=== PATIENT | female | born 1955 | race Caucasian/White ===

== ENCOUNTER → 2017-03-09 | Outpatient (CLI) | payer OTHER ==
[~2017-03-09] MED LIST: ALLOPURINOL 30300 M2 PO; ALLOPURINOL PO; AMLODIPINE BESYL5 MG PO; BACTRIM DS TAB1 EACH PO; BUPROPION PO; CALCIUM PO; COUMADIN 10MG T10 M1 PO; COUMADIN 5 MG TA5 M1; EFFEXOR; EFFEXOR 5050 MG/1 T1 PO; GABAPENTIN PO; HYDROCODON-ACE1 EAC5 PO; KEFLEX500 MG PO; LIDODERM 5%1 PATC1 TOP; LISINOPRIL PO; MEDROLDOSEPACK PO; NEURONTIN 300300 M1 PO; NORCO 10-325 T1 EACH PO; NORCO 5-325 TA1 EACH PO; NYAMYC15 GM TOP; PRAVACHOL40 MG PO; PREVACID 30MG C30 M1 PG; PREVACID 30MG C30 M1 PO; PREVACID30 MG PO; PRINIVIL20 MG PO; PROBIOTIC1 EAC1 PO; SKELAXIN 800 M800 M1 PO; STRATTERA; STRATTERA10 MG PO; SUPER B COMPLE1 EAC2 PO; THERA-M CAPLET1 EACH PO; TRIAMCINOLONE A80 G2 TOP; TUSSID DM SYRU240 ML PO; ULORIC80 MG PO; VITAMIN D2000 UNIT PO; WELLBUTRIN SR150 MG PO; XANAX PO; XANAX1 MG PO
== END ==
LOC: HYPER 06-10 08:00
DX: I87.391 Chronic venous hypertension (idiopathic) with other complications of right lower extremity (principal); K21.9 Gastro-esophageal reflux disease without esophagitis; F31.9 Bipolar disorder, unspecified; M19.90 Unspecified osteoarthritis, unspecified site; G43.909 Migraine, unspecified, not intractable, without status migrainosus; Z86.718 Personal history of other venous thrombosis and embolism; I12.9 Hypertensive chronic kidney disease with stage 1 through stage 4 chronic kidney disease, or unspecified chronic kidney disease; N18.2 Chronic kidney disease, stage 2 (mild)

== ENCOUNTER 2018-07-11 15:21 | Emergency (ER) | payer OTHER ==
[~2018-07-11] VITALS: Ht 154.9 cm; Wt 115.7 kg
[2018-07-11 16:33] LABS: HEMATOCRIT 34.9 % (37.0-47.0); HEMOGLOBIN 11.8 gm/dL (12.0-15.0); MCH 31.2 pg (26.0-34.0); MCHC 33.9 g/dL (28.0-37.0); MCV 92.1 fL (80.0-100.0); RBC 3.78 mil/uL (4.20-5.00); RDW 15.1 % (10.5-14.5); WBC 6.3 thou/uL (4.0-11.0)
[2018-07-11 16:39] LABS: POTASSIUM 3.4 mmol/L (3.5-5.1)
[2018-07-11 16:40] LABS: INR 1.2; PROTIME 12.5 Seconds (9.3-11.4)
[2018-07-11] MEDS ORDERED: NORCO 10-325 T1 EACH PO (17:29)
[2018-07-11 17:39] VITALS: BP 137/74
== END 2018-07-11 17:41 | disposition home or self-care (01) ==
LOC: ER 15:21
PROVIDERS: Physician Assistant
DX: M25.561 Pain in right knee (principal); I10 Essential (primary) hypertension; E78.00 Pure hypercholesterolemia, unspecified; F32.9 Major depressive disorder, single episode, unspecified; M10.9 Gout, unspecified; J42 Unspecified chronic bronchitis; K21.9 Gastro-esophageal reflux disease without esophagitis; M54.9 Dorsalgia, unspecified; G89.29 Other chronic pain; Z88.1 Allergy status to other antibiotic agents; Z88.6 Allergy status to analgesic agent; Z86.718 Personal history of other venous thrombosis and embolism; Z90.49 Acquired absence of other specified parts of digestive tract; Z90.710 Acquired absence of both cervix and uterus; W10.9XXA Fall (on) (from) unspecified stairs and steps, initial encounter; Y92.89 Other specified places as the place of occurrence of the external cause; Y93.89 Activity, other specified; Y99.8 Other external cause status

== ENCOUNTER 2019-02-16 14:14 | Emergency (ER) | payer OTHER ==
[~2019-02-16] VITALS: Ht 157.5 cm; Wt 111.6 kg
[2019-02-16 16:52] VITALS: BP 133/59
[2019-02-16] MEDS ORDERED: MOBIC15 MG PO (17:06)
[2019-02-16] MEDS ORDERED: LIDOCAINE PAIN1 EACH TOP (17:23)
== END 2019-02-16 17:32 | disposition home or self-care (01) ==
LOC: ER 14:14
DX: S81.801A Unspecified open wound, right lower leg, initial encounter (principal); K21.9 Gastro-esophageal reflux disease without esophagitis; M10.9 Gout, unspecified; I10 Essential (primary) hypertension; F32.9 Major depressive disorder, single episode, unspecified; E78.00 Pure hypercholesterolemia, unspecified; G89.29 Other chronic pain; M54.9 Dorsalgia, unspecified; Z86.14 Personal history of Methicillin resistant Staphylococcus aureus infection; Z90.49 Acquired absence of other specified parts of digestive tract; Z98.890 Other specified postprocedural states; Z86.718 Personal history of other venous thrombosis and embolism; Z88.1 Allergy status to other antibiotic agents; Z88.6 Allergy status to analgesic agent; I87.8 Other specified disorders of veins; W18.39XA Other fall on same level, initial encounter; Y92.89 Other specified places as the place of occurrence of the external cause; Y93.89 Activity, other specified; Y99.8 Other external cause status

== ENCOUNTER 2019-08-08 12:20 | Inpatient (IN) | payer OTHER ==
[~2019-08-08] VITALS: Ht 154.9 cm; Wt 118.5 kg
--- NOTE | ~2019-08-08 | HC ---
[facility] [place] [address] CONSULTATION Name: ANKIT JULIAN Room #: 452-P ADM IN M.R.#: [id number] Admission: 08/08/19 Attend Phys: Roberto Harrison MD Discharge: Date of : 53 Report #: [id number] THIS REPORT FOR: cc: Ed Smith MD, Steven E. MD Al-Absi,Tasha Alicia MD ~ CC: Tasha Smith REASON FOR CONSULTATION: Acute kidney injury. REASON FOR THE PRESENTATION: Post fall. HISTORY OF PRESENT ILLNESS: A 63-year-old with extensive past medical history including chronic kidney disease, hypertension. She is also known to have chronic pain issues and maintained on numerous medications for her chronic pain. She used to see Dr. Dillon in our clinic. She carries a diagnosis of chronic kidney disease with a baseline creatinine of around 1.5. She presented yesterday having some issues with falls and was found to be down by her daughter and was brought for further evaluation and management. Family reported that the patient had been increasingly weak in the last couple of weeks. She denies any urinary symptoms. Nobody really knows how long the patient has been down. When the patient presented to the Emergency Room yesterday, her creatinine was up to 2.9. I was consulted to manage her acute kidney injury. PAST MEDICAL HISTORY: 1. Hypertension. 2. Chronic pain issues. 3. DVT. 4. Remote history of acute renal failure after hysterectomy. 5. GERD. 6. Knee surgery. 7. Chronic back pain. 8. Hysterectomy. 9. Depression. ALLERGIES: ERYTHROMYCIN. CURRENT MEDICATIONS: Include meloxicam, pravastatin, alprazolam, warfarin, allopurinol, gabapentin, lisinopril, amlodipine, hydrocodone. SOCIAL HISTORY: No reported drug or alcohol abuse. FAMILY HISTORY: Significant for hypertension. REVIEW OF SYSTEMS: [facility] [address] [place] [address] CONSULTATION Name: ANKIT JULIAN Room #: [address] [place] [address] [place] [facility].#: [id number] Admission: 08/08/19 Attend Phys: Roberto Harrison MD Discharge: Date of : 53 Report #: [id number] GENERAL: Significant for weakness and lethargy. CARDIOVASCULAR: No chest pain or palpitation. PULMONARY: No cough or hemoptysis. GASTROINTESTINAL: No nausea or vomiting or loss of appetite and weight loss. GENITOURINARY: No frequency, no urgency. SKIN: Significant for bilateral lower extremity venous stasis changes. PHYSICAL EXAMINATION: GENERAL: She is alert, oriented. VITAL SIGNS: Blood pressure is 134/56, temperature is 37.4. HEAD AND NECK: No jugular venous distention. CARDIOVASCULAR: No rub detected, distant S1 and S2. CHEST: Decreased air entry bilaterally with no crackles. ABDOMEN: Soft and nontender. LOWER EXTREMITIES: Extensive bilateral lower extremity venous stasis changes. LABORATORY VALUES: Reviewed. Sodium is 144, potassium is 3.2, chloride is 109, BUN is 20, creatinine is 1.4. Hemoglobin is 11.1. IMPRESSION AND PLAN: 1. Acute kidney injury due to nonsteroidal anti-inflammatory medications. 2. Coagulopathy with supratherapeutic INR. 3. Chronic kidney disease. 4. Polypharmacy. Renal function is improving with IV fluid. Continue to hold blood pressure medication. Completely avoid nonsteroidal anti-inflammatory medication. 5. Replace potassium. 6. Her renal function is back to her usual baseline. She could follow up with our clinic as an outpatient. 7. No further renal recommendations. By: [id number] Tasha Patton MD /nt
[~2019-08-08 12:20] MED LIST changes: +LIDOCAINE PAIN1 EACH TOP; +MOBIC15 MG PO
[2019-08-08 12:31] VITALS: BP 148/55
--- NOTE | 2019-08-08 12:34 | NUR ---
trauma coodinator to see patient. unsure of complaint. pt appears confused but alert. reports "she did not fall" just laid down on floor, face down to increase oxygen into her lungs. pt is on warfarin secondary to dvt. family arrives at reports unwitness fall however found face down in bathroom. patient states it was intentional. family also concerned increased confusion the past week. dr castaneda notified.
[2019-08-08 12:41] LABS: ABSOLUTE NEUTROPHILS 8.1 thou/uL (1.4-8.2); BASOPHILS 0.2 % (0.0-2.0); EOSINOPHILS 1.2 % (0.0-3.0); HEMATOCRIT 36.1 % (37.0-47.0); HEMOGLOBIN 11.9 gm/dL (12.0-15.0); LYMPHOCYTES 13.8 % (24.0-44.0); MCH 31.5 pg (26.0-34.0); MCV 95.5 fL (80.0-100.0); MONOCYTES 5.2 % (1.0-8.0); PLATELET COUNT 202 thou/uL (150-400); POLYS 79.6 % (36.0-66.0); RBC 3.78 mil/uL (4.20-5.00); RDW 15.4 % (10.5-14.5); WBC 10.2 thou/uL (4.0-11.0)
[2019-08-08 12:50] LABS: ANION GAP 13 mmol/L (7-16); BUN 33 mg/dL (7-18); CHLORIDE 105 mmol/L (98-107); CO2 20 mmol/L (21-32); CREATININE 2.9 mg/dL (0.6-1.0); GLUCOSE 123 mg/dL (74-106); POTASSIUM 3.2 mmol/L (3.5-5.1); SODIUM 138 mmol/L (136-145)
[2019-08-08 12:54] LABS: APTT 68.3 Seconds (24.5-32.8); PROTIME 67.8 Seconds (9.3-11.4)
[2019-08-08 12:56] LABS: ALBUMIN 3.1 g/dL (3.4-5.0); SALICYLATE < 2.8 mg/dL (2.8-20.0); SGOT 45 U/L (15-37); SGPT 21 U/L (30-65); TOTAL BILIRUBIN 0.5 mg/dL (<0.1-1.0); TOTAL PROTEIN 6.6 g/dL (6.4-8.2)
[2019-08-08 13:03] LABS: INR 6.6
[2019-08-08 13:31] LABS: URINE BILIRUBIN NEGATIVE (Negative); URINE BLOOD 3+ (Negative); URINE CLARITY CLEAR; URINE COLOR YELLOW; URINE GLUCOSE-RANDOM* NEGATIVE (Negative); URINE KETONES NEGATIVE (Negative); URINE LEUKOCYTES-REFLEX NEGATIVE (Negative); URINE NITRITE-REFLEX NEGATIVE (Negative); URINE PROTEIN (DIPSTICK) TRACE (Negative); URINE SPECIFIC GRAVITY 1.025 (1.005-1.035); URINE UROBILINOGEN 0.2 E.U./dl (0.2-1.0)
[2019-08-08 13:41] LABS: AMP/METHAMP Negative (Negative); BARBITURATES Negative (Negative); BENZODIAZEPINES Negative (Negative); COCAINE Negative (Negative); METHADONE Negative (Negative); OPIATES POSITIVE (Negative); PCP Negative (Negative)
[2019-08-08 13:45] LABS: CASTS None Seen /LPF (None Seen); CRYSTALS None Seen /LPF (None Seen); SQUAMOUS 4-10 Moderate /LPF (0-3)
[2019-08-08 13:46] LABS: BACTERIA-REFLEX 1-9 Few /HPF (None Seen); URINE RBC 0-2 Rare /HPF (0-2); URINE WBC-REFLEX 0-5 Rare /HPF (0-5)
[2019-08-08 15:34] VITALS: BP 115/50
--- NOTE | 2019-08-08 15:46 | NUR ---
DR GIBSON CALLED, STATES THAT THE FOLLOWING MEDS SHOULD BE HELD R/T KIDNEY FUNCTION: EFFEXOR AMLODIPINE MOBIC GABAPENTIN LISINOPRIL ALSO GIVES T/O FOR NS 70ML/HR
[2019-08-08 16:13] VITALS: BP 115/50
--- NOTE | 2019-08-08 16:17 | NUR ---
HANDOFF TOOL SENT AT 16:16. CALLED UNIT TO NOTIFY THEM OF HAND OFF TOOL COMMUNICATION.
[2019-08-08 17:12] VITALS: BP 134/72
[2019-08-08 19:20] VITALS: BP 113/50
--- NOTE | 2019-08-09 05:32 | NUR ---
Assumed pt care @1915. pt a&ox4. pt woke up from sleep with a little bit of confusion but slowly cleared up and was able to answer all my questions appropraitely. pt ambulates with 1 assist with a walker to the bathroom. pt complaint of pain to sacral area upon palpation. pt denies anyother kind of pain. no s/s of distress. will cont to monitor
[2019-08-09 06:05] LABS: HEMATOCRIT 34.6 % (37.0-47.0); HEMOGLOBIN 11.1 gm/dL (12.0-15.0); MCH 31.1 pg (26.0-34.0); MCHC 32.2 g/dL (28.0-37.0); MCV 96.5 fL (80.0-100.0); RBC 3.58 mil/uL (4.20-5.00); RDW 15.7 % (10.5-14.5); WBC 7.4 thou/uL (4.0-11.0)
[2019-08-09 06:15] LABS: CREATININE 1.4 mg/dL (0.6-1.0); POTASSIUM 3.2 mmol/L (3.5-5.1)
[2019-08-09 06:18] LABS: PROTIME 97.1 Seconds (9.3-11.4)
[2019-08-09 06:29] LABS: INR 9.4
[2019-08-09 08:00] VITALS: BP 134/56
--- NOTE | 2019-08-09 10:50 | NUR ---
PT ADMITTED RELATED TO GENERALIZED WEAKNESS, FALL AT HOME. CM REVIEWED CHART AND SPOKE WITH CARE TEAM. CM MET WITH PT AT BEDSIDE THIS DAY. PT IS A&O X4. CM ROLE INTRODUCED. PT INDICATED SHE LIVES IN A SECOND FLOOR APARTMENT WITH HER SMALL DOG WITH ELEVATOR ACCESS. 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 PT INIDCATED SHE HAD HH YEARS AGO. PT INDICATED SHE HAD BEEN TO [facility] OR [facility] TWICE IN THE PAST WELL. PT INIDCATED HER DTR AND HER ANAMARIA ANABEL ARE THE BEST CONTACTS FOR HER. PT INIDCATED THAT SHE HOPES TO BE ABLE TO RETURN HOME ONCE MEDICALLY STABLE. CM TO FOLLOW INDICATED WITH DC PLANNING.
[2019-08-09 14:55] VITALS: BP 137/55
--- NOTE | 2019-08-09 15:57 | NUR ---
CARE TEAM INDICATED THAT PT MAY BE MEDICALLY STABLE TO DC HOME OVER SVEN WEEKEND. REFERRAL FOR HOME HEALTH SERVICES HAD BEEN SENT TO [facility] AND THEY CAN ACCEPT PT FOR SERVICES UPON DISCHARGE. ORDERS WILL NEED TO BE FAXED TO . CALL AND NOTIFY THEM OF DISCHARGE. PT HAD ALL RECOMMENDED DME.
[2019-08-09 15:59] VITALS: BP 137/55
--- NOTE | 2019-08-09 18:46 | NUR ---
PT A&OX4, VSS, DENIES PAIN. APPROX 0830 WAS VERY HARD TO AROUSE, WOULD OPEN EYES AND CLOSE IMMEDIATELY. HER BASELINE AT 0700 WAS ALERT AND TALKATIVE AND WANTING PEPSI WITH BREAKFAST. VITALS AND BLOOD SUGAR TAKE AND WITHIN NORMAL LIMITS, DOCTOR NOTIFIED. AT 0845 DOCTOR IN WITH PATIENT. AT THIS TIME PATIENT JOKING AND STATING SHE IS RETIRED AND JUST WANTED TO SLEEP. DOCTOR AWARE THAT MED REC ISNT COMPLETED. PATIENT HASNT HAD THAT EPISODE SINCE 0830. NO SIGNS OF DISTRESS. WILL CONTINUE TO MONITOR.
[2019-08-09 19:06] VITALS: BP 144/64
--- NOTE | 2019-08-10 04:53 | NUR ---
No concerns overnight. pt had a restful night but bathroom interruptions. pt ambulates to the bathroom with 1 assist and a cane pt wanted her protonix before bed. orders recived and and administered. v/s stable. no s/s of distress. will cont to monitor
[2019-08-10 06:06] LABS: CALCIUM 8.4 mg/dL (8.5-10.1); POTASSIUM 3.6 mmol/L (3.5-5.1)
[2019-08-10 08:00] VITALS: BP 160/80
[2019-08-10 09:45] LABS: INR 2.6; PROTIME 27.1 Seconds (9.3-11.4)
[2019-08-10] MEDS ORDERED: COUMADIN 2.5MG2.5 M1 PO (09:54)
[2019-08-10 11:58] VITALS: BP 137/55
[2019-08-10 12:04] VITALS: BP 137/55
--- NOTE | 2019-08-10 12:31 | NUR ---
SPOKE WITH JOSE CALROS WITH [facility] AND NOTIFIED HER OF PATIENTS DISCHARGE TODAY, ORDERS FAXED WELL.
--- NOTE | 2019-08-10 12:32 | NUR ---
PT A&OX4, VSS, PAIN IN ABDOMEN D/T GERD. PATIENT HAD MEDICATION TO MANAGE STOMACH DISCOMFORT. PATIENT DISCHARGING HOME WITH [facility]. PATIENT HAS NO SIGNS OF DISTRESS, IV REMOVED, ALL BELONGINGS WITH PATIENT.
== END 2019-08-10 15:41 | disposition home health service (06) | DRG 918 ==
LOC: ER 12:20 → EROBS 14:37 → 4W 14:37
PROVIDERS: Emergency Medicine; ADMIT Hospitalist
DX: T39.394A Poisoning by other nonsteroidal anti-inflammatory drugs [NSAID], undetermined, initial encounter (principal); N17.9 Acute kidney failure, unspecified; D68.9 Coagulation defect, unspecified; N14.0 Analgesic nephropathy; T39.391A Poisoning by other nonsteroidal anti-inflammatory drugs [NSAID], accidental (unintentional), initial encounter; T42.6X1A Poisoning by other antiepileptic and sedative-hypnotic drugs, accidental (unintentional), initial encounter; K21.9 Gastro-esophageal reflux disease without esophagitis; G89.29 Other chronic pain; M54.9 Dorsalgia, unspecified; F32.9 Major depressive disorder, single episode, unspecified; N18.9 Chronic kidney disease, unspecified; E78.5 Hyperlipidemia, unspecified; Z60.2 Problems related to living alone; M10.9 Gout, unspecified; D64.9 Anemia, unspecified; I12.9 Hypertensive chronic kidney disease with stage 1 through stage 4 chronic kidney disease, or unspecified chronic kidney disease; E86.0 Dehydration; E87.6 Hypokalemia; T39.395A Adverse effect of other nonsteroidal anti-inflammatory drugs [NSAID], initial encounter; Y92.89 Other specified places as the place of occurrence of the external cause; Z86.718 Personal history of other venous thrombosis and embolism; Z90.49 Acquired absence of other specified parts of digestive tract; Z90.710 Acquired absence of both cervix and uterus; Z86.14 Personal history of Methicillin resistant Staphylococcus aureus infection; Z88.1 Allergy status to other antibiotic agents; Z88.8 Allergy status to other drugs, medicaments and biological substances; Z82.49 Family history of ischemic heart disease and other diseases of the circulatory system
CPT/HCPCS: 10040

== ENCOUNTER 2021-03-14 22:34 | Inpatient (IN) | payer MEDICARE ==
[~2021-03-14] VITALS: Ht 152.4 cm; Wt 107.0 kg
[~2021-03-14 22:34] MED LIST changes: +COUMADIN 2.5MG2.5 M1 PO
[2021-03-14 22:36] VITALS: BP 160/70
[2021-03-15 00:18] LABS: ABSOLUTE NEUTROPHILS 5.3 thou/uL (1.4-8.2); BASOPHILS 0.4 % (0.0-2.0); EOSINOPHILS 0.7 % (0.0-3.0); HEMATOCRIT 40.5 % (37.0-47.0); LYMPHOCYTES 23.3 % (24.0-44.0); MCH 29.9 pg (26.0-34.0); MCHC 32.1 g/dL (28.0-37.0); MCV 93.2 fL (80.0-100.0); MONOCYTES 7.2 % (1.0-8.0); PLATELET COUNT 277 thou/uL (150-400); POLYS 68.4 % (36.0-66.0); RBC 4.35 mil/uL (4.20-5.00); RDW 15.5 % (10.5-14.5); WBC 7.7 thou/uL (4.0-11.0)
[2021-03-15 00:21] LABS: CALCIUM 8.8 mg/dL (8.5-10.1); CREATININE 1.2 mg/dL (0.6-1.0)
[2021-03-15 00:24] LABS: APTT 37.3 Seconds (24.5-32.8); INR 1.91; POTASSIUM 2.7 mmol/L (3.5-5.1); PROTIME 20.2 Seconds (10.5-12.1)
[2021-03-15 07:05] VITALS: BP 177/80
[2021-03-15 07:25] VITALS: BP 156/92
--- NOTE | 2021-03-15 11:36 | NUR ---
A/O 3. ROOM AIR. 2 ASSIST WITH WALKER. WEAK, YRN AT KNEES. RIGHT RADIAL FX IN SLING AND LEFT GREAT TOE FX IN BOOT. LEFT HAND IV 22 G SALINE LOCKED. LEFT ARM BRUISE. K 2.7. DR. CHEN NOTIFIED. NORCO ADDED. PER PATIENT NORCO WORKS BETTER FOR HER THAN MORPHINE. NPO.
--- NOTE | 2021-03-15 15:37 | EKG ---
[address] [address] ELECTROCARDIOGRAM REPORT Name: ANKIT JULIAN Room #: 443-P ADM IN M.R.#: [id number] Admission: 03/15/21 Attend Phys: Carlito Arvizu, Discharge: Date of : 53 Report #: [id number] [facility] ED Test Date: 2021-03-15 Test Time: 00:30:27 Pat Name: ANKIT JULIAN Department: Room: 443 Gender: F Piece Dyer: LAURENT : 1955 Requested By: Shaheen Roach Order Number: [id number] MD: Yung Ledezma Measurements Intervals [place] Rate: 71 P: 69 ND: 182 QRS: 54 QRSD: 118 T: 69 QT: 512 QTc: 557 Interpretive Statements Sinus rhythm Probable left atrial enlargement Nonspecific intraventricular conduction delay Compared to ECG 07/08/2015 12:08:26 Intraventricular conduction delay now present Sinus tachycardia no longer present Poor R-wave progression no longer present Electronically Signed On 03-15-2021 15:37:04 CDT by Yung Ledezma [email or web address] <ELECTRONICALLY SIGNED> By: Yung Ledezma MD, FACC 03/15/21 1537 0030 0030 Yung Ledezma MD, FACC /EPI
[2021-03-15 15:57] VITALS: BP 144/75
[2021-03-15 19:23] VITALS: BP 150/73
[2021-03-16 04:40] VITALS: BP 157/90
--- NOTE | 2021-03-16 06:10 | NUR ---
RECEIVED CARE OF THIS PATIENT AT 1900. PATIENT ALERT AND ORIENTED X4. R ARM IN A SLING, L FOOT IN A SURGICAL BOOT. C/O PAIN, MED GIVEN. INC OF URINE. IV RESTARTED IN UPPER L ARM. SLEPT LITTLE THIS SHIFT.
[2021-03-16 07:40] VITALS: BP 161/82
--- NOTE | 2021-03-16 10:20 | NUR ---
Notified of pt with high nutrition screening risk. Admitted with toe/wrist fracture from fall. Visit with pt, states appetite is good and wt loss was intentional ~25 lb over past year. On regular diet and able to order own meals. presents low nutrition risk
--- NOTE | 2021-03-16 11:09 | NUR ---
Case opened to follow for dc planning. Mineralogy Teacher visited with the pt at bedside and case discussed with the care team. Pt admitted with fx wrist and fx toe. Both non surgical at this time but will need f/u with ortho in 1-2 weeks. Pt lives alone in a sr/disabled apt complex. She has elevator access to her 2nd floor apt. She has a quad cane and a FWW if needed at dc. She is a&ox4 and notes that she slipped at home resulting in her fall. She has limited support system including her step dtr Marcia, ANAMARIA's Citlaly and Makayla, and ex Darien. She is normally indep with gait using her cane and indep with adl's. She does not feel she can go directly home even with hh due to limited support. She is agreeable to SNF and has been to [facility] in the past. She stated she is interested in [facility] or [facility] in that order for a SNF stay. She is aware that she will need to be evaluated by therapy today and insurance auth would need to be obtained. She reports pain in rt wrist and is struggling with the sling pulling on her neck. Unit RN updated and PT/OT evals requested. The pt will update her family and advise on referrals to SNFs (her ANAMARIA's live in [place] and could maybe visit her). She is covid neg and has had both her covid vaccines. This information was faxed along with her referral to both and [facility]. They are checking her ins to see if they are in network and if they have a bed available tomorrow. Therapy evals to be faxed later today. The pt has had [facility] in the past but is not on service with anyone at this time. Her pcp is Ed Smith. The pt is also aware that her insurance will likely not cover the entire period of time needed for her wrist fx to heal. Will follow.
[2021-03-16 15:51] VITALS: BP 147/86
--- NOTE | 2021-03-16 18:59 | NUR ---
Pt A & O x4. Pt VS stable. Pt wanted IV removed. IV removed. MD notified and aware. Pt received medications as ordered and prn pain medications. pt is able to make needs known. Pt has sling to right arm in place
[2021-03-16 20:23] VITALS: BP 158/75
--- NOTE | 2021-03-17 06:17 | NUR ---
RECEIVED CARE OF THIS PATIENT AT 1900. PATIENT ALERT AND ORIENTED X4. R ARM IN SLING. L FOOT IN SURGERY BOOT. C/O PAIN IN ELBOW AND A TOOTHACHE. MED GIVEN. INC OF BLADDER. SLEPT OFF AND ON DURING NIGHT.
[2021-03-17 07:00] VITALS: BP 182/96
[2021-03-17] MEDS ORDERED: NORCO5 PO (12:41)
--- NOTE | 2021-03-17 13:20 | NUR ---
DISCHARGE NOTE: KO reviewed chart and spoke with nursing. Pt is medically stable to for discharge to post-acute care today. [facility] and [facility] are both able to accept pt today. Pt's insurance has a SNF waiver until 05/28/2021. KO met with pt at bedside to discuss SNF placement. Pt states her preference is [facility], as she has been ther in the past. KO updated [facility] post-acute liaison. Transportation scheduled for 1500 per facility's arrangements. KO updated pt's nurse. Discharge ppwk completed by attending physician. KO met with pt at bedside to notify of discharge time. Pt is agreeable with plan and will notify her stepdtr. Pt's family to bring personal items to the facility. Chart copy requested. Nursing provided with number to call report. OK fasxed d/c ppwk to [facility] post-acute liasion. Confirmed info was received. KO updated Mary[place]uy, in admissions at [facility]. No additional KO needs identified at this time. KO is available to assist should needs arise.
[2021-03-17 14:57] VITALS: BP 160/87
--- NOTE | 2021-03-17 15:46 | NUR ---
PT ALERT AND ORIENTED TIMES FOUR WITH PERIODS OF CONFUSION. VSS. PT C/O PAIN PRN PAIN MEDICATIONS CONTROLLING PAIN WELL. PT TOLEATES MEDS AND MEALS. PT UP TO CHAIR WITH ASSIST OF TWO. PLANS FOR DISCHARGE TODAY.
== END 2021-03-17 15:48 | DRG 563 ==
LOC: ER 22:34 → 4S 03-15 03:24 → EROBS 03-15 03:24 → 4S 03-15 07:32
PROVIDERS: Emergency Medicine; ADMIT Surgery; ATTEND Surgery
DX: S92.421A Displaced fracture of distal phalanx of right great toe, initial encounter for closed fracture (principal); S52.501A Unspecified fracture of the lower end of right radius, initial encounter for closed fracture; S52.502A Unspecified fracture of the lower end of left radius, initial encounter for closed fracture; S92.422A Displaced fracture of distal phalanx of left great toe, initial encounter for closed fracture; Y99.8 Other external cause status; Z20.822 Contact with and (suspected) exposure to COVID-19; G89.29 Other chronic pain; M54.9 Dorsalgia, unspecified; F32.9 Major depressive disorder, single episode, unspecified; M10.9 Gout, unspecified; I10 Essential (primary) hypertension; W01.0XXA Fall on same level from slipping, tripping and stumbling without subsequent striking against object, initial encounter; Z86.718 Personal history of other venous thrombosis and embolism; Z90.49 Acquired absence of other specified parts of digestive tract; Z86.14 Personal history of Methicillin resistant Staphylococcus aureus infection; Z90.710 Acquired absence of both cervix and uterus; Z88.1 Allergy status to other antibiotic agents; Z88.8 Allergy status to other drugs, medicaments and biological substances; Y93.89 Activity, other specified; Y92.89 Other specified places as the place of occurrence of the external cause
CPT/HCPCS: 10195